=== PATIENT | male | born 1985 | race African-American/Black ===

== ENCOUNTER 2019-12-24 14:31 | Emergency (ER) | payer BC ==
[2019-12-24 14:44] VITALS: BP 140/88; PULSE 82; RESP 20; TEMP 98.2
--- NOTE | 2019-12-24 15:10 | ED ---
URI HPI - General Chief Complaint: Upper Respiratory Infection Stated Complaint: wants COVID Test Time Seen by Provider: 12/24/19 14:47 Source: patient Mode of arrival: ambulatory Limitations: no limitations - History of Present Illness Initial Comments: Patient is a 34-year-old male presenting to the emergency department chief complaint of upper respiratory infection. Patient is requesting Covid testing that is required by his job in order to be clear. Patient does report having onset of symptoms yesterday with chills and a fever of 100. Patient denies taking medication to alleviate his symptoms. He also reports clear bilateral rhinorrhea with intermittent congestion. Denies any sore throat. He does report a nonproductive cough but states that is mostly secondary to his smoking habit. He denies any otalgia headaches loss of taste or smell. 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 ROS Other: All systems not noted in ROS Statement are negative. Past Medical History Past Medical History: No Reported History History of Any Multi-Drug Resistant Organisms: None Reported Past Surgical History: No Surgical Hx Reported Past Psychological History: No Psychological Hx Reported Smoking Status: Current every day smoker Past Alcohol Use History: Rare Past Drug Use History: Marijuana General Exam Limitations: no limitations General appearance: alert, in no apparent distress Head exam: Present: atraumatic, normocephalic, normal inspection Eye exam: Present: normal appearance, PERRL, EOMI Pupils: Present: normal accommodation ENT exam: Present: normal exam, normal oropharynx, mucous membranes moist, TM's normal bilaterally, normal external ear exam Neck exam: Present: normal inspection, full ROM. Absent: tenderness Respiratory exam: Present: normal lung sounds bilaterally. Absent: respiratory distress, wheezes, rales Cardiovascular Exam: Present: regular rate, normal rhythm, normal heart sounds Extremities exam: Present: normal inspection, full ROM, normal capillary refill. Absent: tenderness, pedal edema, joint swelling Back exam: Present: normal inspection, full ROM. Absent: tenderness, CVA tenderness (R), CVA tenderness (L) Neurological exam: Present: alert, oriented X3 Psychiatric exam: Present: normal affect, normal mood Skin exam: Present: warm, dry, intact, normal color Course Vital Signs 12/24/19 14:41 Temperature 98.2 F Pulse Rate 82 Respiratory 20 Rate Blood Pressure 140/88 O2 Sat by Pulse 99 Oximetry Medical Decision Making - Medical Decision Making Patient 34-year-old male presenting to the emergency department with a chief complaint of upper respiratory symptoms. Physical examination is unremarkable. Patient was offered x-ray. He declined.: Testing pending. She was advised to cefazolin for the next 2 days until the results are finalized. He was advised to only take Tylenol if he develops a fever. Strict return parameters were thoroughly discussed the patient was understanding and agreeable. Case discussed physician. Disposition Clinical Impression: Upper respiratory tract infection Disposition: HOME SELF-CARE Condition: Stable Instructions (If sedation given, give patient instructions): Upper Respiratory Infection (ED) Additional Instructions: Self-isolation for 2 days until he receives the results of Covid testing. Take Tylenol if he develop a fever. Follow with her primary care physician. Return to emergency department if symptoms worsen. Is patient prescribed a controlled substance at d/c from ED?: No Referrals: None,Stated [Primary Care Provider] - 1-2 days Time of Disposition: 15:09
== END 2019-12-24 15:21 | disposition home or self-care (01) ==
LOC: EC 14:31
DX: J06.9 Acute upper respiratory infection, unspecified (principal); F17.200 Nicotine dependence, unspecified, uncomplicated; Z20.828 Contact with and (suspected) exposure to other viral communicable diseases; Z91.013 Allergy to seafood
CPT/HCPCS: 99283; U0003

== ENCOUNTER → 2019-12-24 | Outpatient (CLI) | payer BC | END | disposition home or self-care (01) | LOC: LABWHC1 13:38 | PROVIDERS: ATTEND Emergency Medicine | DX: Z53.9 Procedure and treatment not carried out, unspecified reason (principal) ==

== ENCOUNTER → 2020-02-18 | Outpatient (CLI) | payer BC | END | disposition home or self-care (01) | LOC: LABWHC1 11:29 | PROVIDERS: ATTEND Emergency Medicine | DX: Z20.828 Contact with and (suspected) exposure to other viral communicable diseases (principal) | CPT/HCPCS: U0003; C9803 ==